=== PATIENT | female | born 1970 | race African-American/Black ===

== ENCOUNTER 2023-01-27 20:20 | Emergency (ER) | payer MEDICARE, OTHER ==
[~2023-01-27] VITALS: Ht 160 cm; Wt 47.6 kg
[2023-01-27] MEDS ORDERED: IBUP-1955 PO (23:06)
--- NOTE | 2023-01-27 23:35 | NUR ---
Patient a/o x4. NAD noted. Ambulatory with a steady gait. Patient discharged to home in stable condition. All belongings with patient. Written and verbal after care instructions given. Patient verbalizes understanding of instructions. Stressed follow up or return to ER for worsening s/s.
[2023-01-27 23:36] VITALS: BP 117/78
== END 2023-01-27 23:37 | disposition home or self-care (01) ==
LOC: ER 20:20
DX: M54.50 Low back pain, unspecified (principal); F17.210 Nicotine dependence, cigarettes, uncomplicated; Z90.710 Acquired absence of both cervix and uterus; Z88.2 Allergy status to sulfonamides; Z88.8 Allergy status to other drugs, medicaments and biological substances
CPT/HCPCS: 72220; A4663

== ENCOUNTER 2023-12-03 05:10 | Emergency (ER) | payer MEDICARE, MEDICAID ==
[~2023-12-03] VITALS: Ht 160 cm; Wt 45.4 kg
[~2023-12-03 05:10] MED LIST: IBUP-1955 PO
[2023-12-03] MEDS ORDERED: HYDROCODONE/APAP 10-325 MG TABLET ONE (06:16)
[2023-12-03] MEDS: HYDROCODONE/APAP 10-325 MG TABLET PO ONE (06:23)
[2023-12-03] MEDS ORDERED: HYDR-3980 PO (06:33)
[2023-12-03 07:15] VITALS: BP 140/88; TEMP 98; O2SAT 99
== END 2023-12-03 07:18 | disposition home or self-care (01) ==
LOC: ER 05:22
DX: G89.29 Other chronic pain (principal); M25.531 Pain in right wrist; M66.821 Spontaneous rupture of other tendons, right upper arm; F17.210 Nicotine dependence, cigarettes, uncomplicated; Z90.49 Acquired absence of other specified parts of digestive tract; Z79.899 Other long term (current) drug therapy; Z88.2 Allergy status to sulfonamides
CPT/HCPCS: 73060; 73090; 73130; A4606; A4663